=== PATIENT | female | born 1940 | race Caucasian/White ===

== ENCOUNTER → 2016-09-17 | Outpatient (CLI) | payer MEDICARE, OTHER ==
[~2016-09-17] MED LIST: /HCTZ25TA PO; /OCUVTA PO; ADV250INH INH; ALB2.5NEB INH; AZELASTINE HCL; CENTTAB PO; DOCU100C PO; GINKO BILOBA PO; LANS30CA PO; LEVO750T PO; MUCI600T34 PO; PRED10PA PO; PROAAER INH; RAMI10CA PO; SPIRIVA INH
[2016-09-17 11:54] LABS: BASO % 0.8 % (0.0-1.0); EOS # 0.2 K/mm3 (0.0-0.50); EOS % 2.5 % (0.0-3.0); LARGE UNSTAINED CELL # 0.1 K/mm3 (0.0-0.4); LARGE UNSTAINED CELL % 1.5 % (0.0-4.0); LYMPH # 1.4 K/mm3 (1.5-4.5); LYMPH % 18.8 % (24.0-44.0); MEAN CORPUSCULAR HEMOGLOBIN 32.1 pg (27.0-33.0); MEAN CORPUSCULAR HGB CONC 33.7 g/dl (32.0-36.5); MEAN CORPUSCULAR VOLUME 95.3 fl (80.0-96.0); MONO # 0.4 K/mm3 (0.0-0.8); MONO % 6.3 % (0.0-5.0); NEUTROPHILS # 4.7 K/mm3 (1.8-7.7); NEUTROPHILS % 70.1 % (36.0-66.0); PLATELET COUNT, AUTOMATED 237 k/mm3 (150-450); RED CELL DISTRIBUTION WIDTH 13.3 % (11.5-14.5); WHITE BLOOD COUNT 6.7 K/mm3 (4.0-10.0)
[2016-09-17 12:24] LABS: ALBUMIN 3.8 GM/DL (3.2-5.2); ALBUMIN/GLOBULIN RATIO 1.27 (1.00-1.93); ALKALINE PHOSPHATASE 69 U/L (45-117); ALT/SGPT 21 U/L (12-78); ANION GAP 5 MEQ/L (8-16); AST/SGOT 20 U/L (15-37); BILIRUBIN,TOTAL 0.6 MG/DL (0.2-1.0); BLOOD UREA NITROGEN 17 MG/DL (7-18); CALCIUM LEVEL 9.2 MG/DL (8.8-10.2); CARBON DIOXIDE LEVEL 35 MEQ/L (21-32); CHLORIDE LEVEL 98 MEQ/L (98-107); CHOLESTEROL LEVEL 242 MG/DL (<200); GLOMERULAR FILTRATION RATE > 60.0 (>39); GLUCOSE, FASTING 82 MG/DL (83-110); POTASSIUM SERUM 4.2 MEQ/L (3.5-5.1); SODIUM LEVEL 138 MEQ/L (136-145); TOTAL PROTEIN 6.8 GM/DL (6.4-8.2); TRIGLYCERIDES LEVEL 40 MG/DL (<150)
== END ==
LOC: M LAB 11:02
PROVIDERS: ATTEND Family Medicine
DX: I10 Essential (primary) hypertension (principal)

== ENCOUNTER → 2016-10-13 | Outpatient (CLI) | payer MEDICARE ==
[2016-10-15 00:06] LABS: Lyme Disease IgG/IgM Antibodie <0.91 ISR (0.00-0.90); Lyme Disease IgM Ab Quantitati <0.80 index (0.00-0.79)
== END ==
LOC: M SMT 09:33
PROVIDERS: ATTEND Family Medicine
DX: R21 Rash and other nonspecific skin eruption (principal)

== ENCOUNTER 2016-12-20 10:25 | Emergency (ER) | payer MEDICARE, OTHER ==
[~2016-12-20] VITALS: Ht 170.2 cm; Wt 72.7 kg
[2016-12-20] MEDS ORDERED: ASPI81TA85 PO (10:53)
--- NOTE | 2016-12-20 11:37 | REP ---
Clinical: Trauma. Technique: Zelaya and bilateral lateral views of the nasal bones. Findings: Lateral view best demonstrates overlying soft tissue swelling. No definite acute fracture or displacement. Nasal septum is midline. Impression: No definite acute fracture or displacement. Signed by Bridger Motley MD 12/20/2016 11:29 A
[2016-12-20] MEDS ORDERED: LIDOCAINE 1% MDV 20ML VIAL SC ONE (12:15)
[2016-12-20] MEDS ORDERED: LIDOCAINE 1% SDV INJ 30 ML VIAL SC SCH (12:15)
[2016-12-20] MEDS ORDERED: KEFL500C17 PO (12:44)
[2016-12-20 12:52] VITALS: BP 159/82
== END 2016-12-20 13:02 | disposition home or self-care (01) ==
LOC: M ED 10:25
DX: S01.21XA Laceration without foreign body of nose, initial encounter (principal); W01.198A Fall on same level from slipping, tripping and stumbling with subsequent striking against other object, initial encounter; Y92.099 Unspecified place in other non-institutional residence as the place of occurrence of the external cause; Y93.01 Activity, walking, marching and hiking; Y99.9 Unspecified external cause status

== ENCOUNTER 2017-01-25 09:36 | Inpatient (IN) | payer MEDICARE, OTHER ==
[~2017-01-25] VITALS: Ht 170.2 cm; Wt 67.5 kg
[~2017-01-25 09:36] MED LIST changes: +ASPI81TA85 PO; +KEFL500C17 PO
[2017-01-25 10:17] LABS: BASO # 0.1 10^3/uL (0.0-0.2); BASO % 0.6 % (0.0-1.0); EOS # 0.1 10^3/uL (0.0-0.50); EOS % 1.3 % (0.0-3.0); IMMATURE GRANULOCYTE % 0.2 % (0-0); LYMPH # 1.4 10^3/uL (1.5-4.5); MEAN CORPUSCULAR HEMOGLOBIN 31.3 pg (27.0-33.0); MEAN CORPUSCULAR HGB CONC 34.8 g/dl (32.0-36.5); MEAN CORPUSCULAR VOLUME 90.1 fl (80.0-96.0); MONO # 0.9 10^3/uL (0.0-0.8); MONO % 9.4 % (0.0-5.0); NEUTROPHILS # 7.4 10^3/uL (1.8-7.7); NEUTROPHILS % 74.5 % (36.0-66.0); PLATELET COUNT, AUTOMATED 281 10^3/uL (150-450); RED CELL DISTRIBUTION WIDTH 12.3 % (11.5-14.5); WHITE BLOOD COUNT 9.9 10^3/uL (4.0-10.0)
--- NOTE | 2017-01-25 10:22 | REP ---
Chest two views HISTORY: Shortness of breath Comparison: 08/13/2012 The lungs are clear. The heart is normal in size. The pulmonary vasculature is normal in appearance. The bony structure is intact. IMPRESSION: No acute disease. Signed by Tyrone Cedeno MD 01/25/2017 10:14 A
[2017-01-25 10:28] LABS: ADD MANUAL DIFFER NO; DIFF SLIDE NUMBER 162
[2017-01-25 10:43] LABS: INR 0.94
[2017-01-25 10:58] LABS: ALBUMIN 3.8 GM/DL (3.2-5.2); ALBUMIN/GLOBULIN RATIO 1.19 (1.00-1.93); ALKALINE PHOSPHATASE 64 U/L (45-117); ALT/SGPT 25 U/L (12-78); ANION GAP 8 MEQ/L (8-16); AST/SGOT 15 U/L (15-37); BILIRUBIN,DIRECT 0.2 MG/DL (0.0-0.2); BILIRUBIN,TOTAL 0.9 MG/DL (0.2-1.0); BLOOD UREA NITROGEN 13 MG/DL (7-18); CALCIUM LEVEL 9.4 MG/DL (8.8-10.2); CARBON DIOXIDE LEVEL 30 MEQ/L (21-32); CHLORIDE LEVEL 93 MEQ/L (98-107); CREATININE FOR GFR 0.73 MG/DL (0.55-1.02); FREE T4 1.22 NG/DL (0.76-1.46); GLOMERULAR FILTRATION RATE > 60.0 (>39); GLUCOSE, FASTING 106 MG/DL (83-110); POTASSIUM SERUM 3.3 MEQ/L (3.5-5.1); SODIUM LEVEL 131 MEQ/L (136-145)
[2017-01-25] MEDS ORDERED: MECLIZINE 25 MG TABLET PO ONE (11:00)
[2017-01-25] MEDS ORDERED: NS 1,000 ML IV ONE (11:00)
--- NOTE | 2017-01-25 11:14 | REP ---
CT Head without contrast HISTORY: Infarction COMPARISON: None Areas of decreased attenuation are present in the periventricular and subcortical white matter. This represents small-vessel ischemic disease. There is no intraparenchymal hemorrhage, acute infarct, mass or midline shift. The ventricular system and cortical sulci are dilated consistent with minimal volume loss. There is no extra cerebral collection. There is no fracture. The visualized sinuses are clear. IMPRESSION: 1. Small vessel ischemic disease. 2. Minimal volume loss. Signed by Tyrone Cedeno MD 01/25/2017 11:06 A
[2017-01-25] MEDS ORDERED: POTASSIUM CHLORIDE 10 MEQ SR TABLET PO ONE (11:15)
[2017-01-25 11:21] LABS: PHOSPHORUS LEVEL 2.8 MG/DL (2.5-4.9)
[2017-01-25 13:57] VITALS: O2SAT 96
--- NOTE | 2017-01-25 16:12 | ECGEPIP ---
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 RBBB BASELINE ARTIFACT AFFECTS INTERPRETATION SIMILAR TO 08/13/12 Electronically Signed On 01-25-2017 16:12:41 EDT by Nixon Elias
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
[2017-01-25] MEDS ORDERED: VITMTA PO (17:10)
[2017-01-25] MEDS ORDERED: SPIR1CAP INH (17:10)
[2017-01-25] MEDS ORDERED: TUMS500C PO (17:10)
[2017-01-25] MEDS ORDERED: GINK60CA3 PO (17:10)
[2017-01-25] MEDS ORDERED: CALCIUM CARBONATE 500 MG CHEW U/D PO PRN (18:00)
[2017-01-25] MEDS ORDERED: ALBUTEROL 90 MCG/ACT 8GM HFA INHALER INH PRN (18:00)
[2017-01-25 18:57] LABS: VITAMIN B12 LEVEL 1370 PG/ML (247-911)
--- NOTE | 2017-01-25 20:00 | REPUSA ---
MRI of the brain. Clinical history: Bilateral lower extremity weakness. Technique: Multiecho multiplanar MRI images of the brain were obtained without administration of cont rast. Diffusion weighted images with ADC mapping was also obtained. Findings: The ventricles and sulci are symmetric bilaterally. The brain parenchyma demonstrates extensive areas of T2 hyperintensitythroughout the subcortical and periventricular white matter bilaterally. There i s no midline shift, mass effect, or extra-axial fluid collection. The midline intracranial structures do not demonstrate any gross abnormalities. The cervical cranial junction is intact. The orbits are unremarkable. The visualized paranasal sinuses and mastoid air cells are clear. The osseous structure s and superficial soft tissues are unremarkable. The vascular structures demonstrate appropriate flow voids. Impression: No evidence of acute infarct or hemorrhage. Diffuse moderately severe chronic small vesse l ischemic disease.
[2017-01-25 20:35] VITALS: BP 152/72
--- NOTE | 2017-01-25 20:40 | REPUSA ---
MRI cervical spine without contrast Clinical statement: bilateral weakness. Technique: Multiecho multiplanar MRI images of the cervical spine were obtained without administratio n of contrast. No comparison is available. Findings: The cervical vertebral bodies are in satisfactory position and alignment. No fractures or d islocations are demonstrated. Normal heterogeneous bone marrow signal is noted. No osseous tumors are seen. The visualized portions of the posterior fossa are unremarkable. The cervical cranial junction is intact. The intervertebral disc spaces and heights are well-maintained. The facet joints are inta ct without evidence of subluxation. The cervical spinal cord demonstrates normal signal and contour. The surrounding soft tissues are within normal limits. At the C3/C4, C4/C5, C5/C6, and C6/C7 disc levels, there are broad disc osteophyte complexes and disc bulges. There are no disc herniations. There is no evidence of central canal stenosis. The neural f oramina are patent bilaterally. Impression: No acute abnormality. Moderate disc osteophyte complexes and disc bulges at C3/C4, C4/C5 , C5/C6, and C6/C7, without evidence of central canal stenosis or neural foraminal narrowing.
[2017-01-25] MEDS: ENOXAPARIN 40 MG/0.4 ML SYRINGE (J1650) SC SCH (20:57)
--- NOTE | 2017-01-25 21:38 | CR ---
DATE OF CONSULTATION: 01/25/2017 REFERRING PHYSICIAN: Dr. Tomy Luna REASON FOR CONSULTATION: Generalized weakness of the arms and legs. HISTORY OF PRESENT ILLNESS: Gifty Anderson is a 76-year-old female presenting with nonspecific complaint of generalized weakness ongoing for the last 1-2 months. The patient states that she had a rash on her right upper back described as a red [place]. She did not have any other associated complaints with this rash. Her primary care provider preemptively started her on doxycycline which she completed during the month of October. The patient did not have any symptoms of weakness or arthralgias and paresthesias of that time. Presently, she denies any ascending paresthesias. She feels that generally her arms and legs are weaker. She denies any recent illness. She denies any blurred vision, fatigue with chewing, dysarthria, dysphagia, vertigo. She denies any change in sensation throughout her arms, legs or trunk. She denies any change in bowel or bladder habits. The patient is not falling down. She feels her gait is unsteady. ALLERGIES: None. MEDICATIONS: - Pravachol 10 mg by mouth daily - albuterol 1 puff inhaled every 4 hours as needed shortness of breath - aspirin 81 mg by mouth every day - hydrochlorothiazide 25 mg by mouth every day - Salmeterol/fluticasone 255/50 1 puff inhaled twice a day - Spiriva 2 puffs inhaled daily PAST MEDICAL HISTORY: Hypertension. Chronic obstructive pulmonary disease (COPD). Hiatal hernia. Gastroesophageal reflux disease. PAST SURGICAL HISTORY: section. Right knee replacement. Hysterectomy. Cataract surgery. Bilateral inguinal hernia repairs. SOCIAL HISTORY: The patient quit tobacco greater than a year ago. The patient used to smoke one-pack per day. The patient denies any use of drugs. The patient does state that she drinks alcohol, a glass of wine almost nightly. States last time she drank alcohol was probably last . REVIEW OF SYSTEMS: 14 point review of systems negative except for as per HPI. FAMILY HISTORY: Noncontributory. PHYSICAL EXAMINATION: Blood pressure 106/83, pulse rate 74, respiratory rate is 16, oxygenation 99% on room air. Current height 5 foot 7 inches. Current weight is 68 pounds. Pupils are 3 mm, round, and reactive to light. Both are postsurgical. Sensation: V1, V2, V3 is intact to light touch. No facial asymmetry to activation. Palate elevates symmetrically. Tongue is midline. No weakness of sternocleidomastoids bilaterally. There is no pronator drift. Strength is 5/5 including bilateral deltoids, biceps, triceps, hand site worker, finger extensors, finger flexors, iliopsoas, quadriceps, anterior tibialis. Deep tendon reflexes are 3s in the upper extremities, 3s of the patellas, 1+ at the Achilles. Babinski signs are absent. Sensory is intact to light touch in all four extremities. Coordination demonstrates mild past pointing [id number]. Gait deferred. ASSESSMENT: Generalized malaise and fatigue. The patient is found to have orthostatic hypotension. Lyme antibodies are pending. There does not appear to be clinical symptoms suggestive of Guillain-Rosedale syndrome. Rule out cervical myelopathy given subjective arm and leg weakness. PLAN: Obtain an MRI cervical spine without contrast, MRI brain without contrast, physical therapy (PT)/occupational therapy (OT). Recommend physical therapy evaluation for strength training for generalized deconditioning. Would recommend checking B12 level. Followup Lyme antibody.
[2017-01-25 22:00] VITALS: BP 149/67
[2017-01-26 06:00] VITALS: BP 126/82
[2017-01-26 07:07] LABS: BASO # 0.1 10^3/uL (0.0-0.2); BASO % 0.9 % (0.0-1.0); EOS # 0.2 10^3/uL (0.0-0.50); EOS % 2.4 % (0.0-3.0); IMMATURE GRANULOCYTE % 0.3 % (0-0); LYMPH # 1.7 10^3/uL (1.5-4.5); LYMPH % 21.9 % (24.0-44.0); MEAN CORPUSCULAR VOLUME 91.4 fl (80.0-96.0); MONO # 0.8 10^3/uL (0.0-0.8); MONO % 10.1 % (0.0-5.0); NEUTROPHILS # 5.1 10^3/uL (1.8-7.7); NEUTROPHILS % 64.4 % (36.0-66.0); PLATELET COUNT, AUTOMATED 240 10^3/uL (150-450); RED CELL DISTRIBUTION WIDTH 12.5 % (11.5-14.5); WHITE BLOOD COUNT 7.9 10^3/uL (4.0-10.0)
[2017-01-26 07:26] LABS: ALBUMIN 3.4 GM/DL (3.2-5.2); ALKALINE PHOSPHATASE 60 U/L (45-117); ALT/SGPT 24 U/L (12-78); ANION GAP 6 MEQ/L (8-16); AST/SGOT 16 U/L (15-37); BILIRUBIN,TOTAL 0.7 MG/DL (0.2-1.0); BLOOD UREA NITROGEN 12 MG/DL (7-18); CALCIUM LEVEL 9.2 MG/DL (8.8-10.2); CARBON DIOXIDE LEVEL 30 MEQ/L (21-32); CHLORIDE LEVEL 99 MEQ/L (98-107); CREATININE FOR GFR 0.66 MG/DL (0.55-1.02); GLOMERULAR FILTRATION RATE > 60.0 (>39); GLUCOSE, FASTING 94 MG/DL (83-110); POTASSIUM SERUM 4.1 MEQ/L (3.5-5.1); SODIUM LEVEL 135 MEQ/L (136-145); TOTAL PROTEIN 6.5 GM/DL (6.4-8.2)
[2017-01-26] MEDS: TIOTROPIUM INHALER/CAPSULE (SPIRIVA) INH SCH (07:53)
[2017-01-26] MEDS: ENOXAPARIN 40 MG/0.4 ML SYRINGE (J1650) SC SCH (08:14)
[2017-01-26] MEDS: hydroCHLOROthiazide 25 MG TAB PO SCH (08:14)
[2017-01-26] MEDS: MULTIVITAMINS/MINERALS THERAP 1 TAB PO SCH (08:14)
[2017-01-26] MEDS: ASPIRIN 81 MG ENTERIC TAB PO SCH (08:14)
[2017-01-26 09:00] VITALS: BP 116/55
[2017-01-26] MEDS: ADVAIR HFA 230/21MCG INHALER INH SCH ×2 (09:00→19:44)
[2017-01-26] MEDS: SENOKOT S TAB PO SCH ×2 (09:43→20:22)
[2017-01-26] MEDS: LISINOPRIL 10 MG TAB PO SCH (12:38)
[2017-01-26 14:00] VITALS: BP 117/69
--- NOTE | 2017-01-26 17:53 | IPNPDOC ---
Date Seen The patient was seen on 01/26/17. Progress Note Hospitalist Progress Note Subjective: Patient has no specific complaints. She states that her weakness is better today, but she notes that it often is better when she rests, and really seems to come on when she is active which makes her short of breath. Objective: Physical Exam: Vitals: Vital Sign - Last 24 Hours 01/25/17 01/25/17 01/25/17 01/25/17 18:15 20:35 21:00 22:00 Temp 97.3 97.0 Pulse 76 78 Resp 22 19 B/P (MAP) 152/72 (98) 149/67 (94) 140/88 (105) Pulse Ox 97 98 O2 Delivery Room Air Room Air Room Air 01/26/17 01/26/17 01/26/17 01/26/17 06:00 08:00 09:00 09:00 Temp 97.5 98.4 Pulse 76 84 Resp 18 18 B/P (MAP) 126/82 (97) 116/55 (75) Pulse Ox 96 97 O2 Delivery Room Air Room Air Room Air Room Air 01/26/17 01/26/17 12:38 14:00 Temp 99.9 Pulse 80 Resp 18 B/P (MAP) 151/77 117/69 (85) Pulse Ox 96 O2 Delivery Room Air General: Awake, alert, no acute distress HEENT: Normocephalic, atraumatic, extraocular movements intact CV: Regular rate and rhythm Lungs: Clear to auscultation bilaterally Abd: Soft, Nontender, nondistended Extremities: No edema Neuro: No focal weakness, alert and oriented 3, normal speech Psych: Normal mood and affect Labs and Imaging: Laboratory Tests 01/26/17 06:23 Red Blood Count 4.67, Mean Corpuscular Volume 91.4, Mean Corpuscular Hemoglobin 31.0, Mean Corpuscular Hemoglobin Concent 34.0, Red Cell Distribution Width 12.5 , Neutrophils (%) (Auto) 64.4, Lymphocytes (%) (Auto) 21.9 L, Monocytes (%) ( Auto) 10.1 H, Eosinophils (%) (Auto) 2.4, Basophils (%) (Auto) 0.9, Neutrophils # (Auto) 5.1, Lymphocytes # (Auto) 1.7, Monocytes # (Auto) 0.8, Eosinophils # ( Auto) 0.2, Basophils # (Auto) 0.1, Calcium Level 9.2, Aspartate Amino Transf ( AST/SGOT) 16, Alanine Aminotransferase (ALT/SGPT) 24, Alkaline Phosphatase 60, Total Bilirubin 0.7, Total Protein 6.5, Albumin 3.4 Assessment and Plan: 76-year-old female with hypertension, COPD, GERD, hiatal hernia who presented to the emergency department with ascending weakness 1 week and orthostatic hypotension. 1. Ascending weakness: The patient was evaluated by Dr. Durham of neurology and he does not feel that this represents Guillain-Rossi. He does recommend ruling out cervical myelopathy with MRI of the C-spine, as well as MRI of the brain, both of which were unremarkable for acute findings and had no evidence of central canal stenosis. We will continue with PT and OT. Lyme antibody is pending, which we will follow up. It appears that this is likely generalized weakness. However, given her report that this seems to come on when she is active which makes her short of breath, we will check an echocardiogram. She does not clinically appear to be having any CHF. 2. Orthostatic hypotension in the setting of chronic hypertension: This was noted once in the emergency department, and her blood pressure has otherwise been a little bit elevated. We will continue her on her home SHERIE inhibitor and HCTZ, and continue to check orthostatics. If they continue to be positive, we will stop the HCTZ. 3. COPD: Continue home Spiriva and home Advair, as well as as needed albuterol. Currently stable. DVT prophylaxis: Lovenox Dispo: pending Lyme antibody as well as echocardiogram results, and clearance by PT/OT VS, I&O, 24H, Fishbone Vital Signs/I&O Vital Signs Date Time Temp Pulse Resp B/P (MAP) Pulse Ox O2 Delivery O2 Flow Rate FiO2 01/26/17 14:00 99.9 80 18 117/69 (85) 96 Room Air I&O- Last 24 Hours up to 6 AM 01/27/17 06:00 Intake Total 720 ml Output Total 300 ml Balance 420 ml Laboratory Data 24H LABS Laboratory Tests 2 01/25/17 18:01: Erythrocyte Sedimentation Rate 3, C-Reactive Protein, Quantitative < 0.30, Vitamin B12 Level 1370H 01/26/17 06:23: Immature Granulocyte % (Auto) 0.3H, White Blood Count 7.9, Red Blood Count 4.67 , Hemoglobin 14.5, Hematocrit 42.7, Mean Corpuscular Volume 91.4, Mean Corpuscular Hemoglobin 31.0, Mean Corpuscular Hemoglobin Concent 34.0, Red Cell Distribution Width 12.5, Platelet Count 240, Neutrophils (%) (Auto) 64.4, Lymphocytes (%) (Auto) 21.9L, Monocytes (%) (Auto) 10.1H, Eosinophils (%) (Auto ) 2.4, Basophils (%) (Auto) 0.9, Neutrophils # (Auto) 5.1, Lymphocytes # (Auto) 1.7, Monocytes # (Auto) 0.8, Eosinophils # (Auto) 0.2, Basophils # (Auto) 0.1, Immature Granulocyte # (Auto) 0.0, Nucleated Red Blood Cells % (auto) 0.0, Anion Gap 6L, Glomerular Filtration Rate > 60.0, Blood Urea Nitrogen 12, Creatinine 0.66, Sodium Level 135L, Potassium Level 4.1#, Chloride Level 99, Carbon Dioxide Level 30, Calcium Level 9.2, Aspartate Amino Transf (AST/SGOT) 16 , Alanine Aminotransferase (ALT/SGPT) 24, Alkaline Phosphatase 60, Total Bilirubin 0.7, Total Protein 6.5, Albumin 3.4, Albumin/Globulin Ratio 1.10 01/26/17 06:24: CBC/BMP Laboratory Tests 01/26/17 06:23 Red Blood Count 4.67, Mean Corpuscular Volume 91.4, Mean Corpuscular Hemoglobin 31.0, Mean Corpuscular Hemoglobin Concent 34.0, Red Cell Distribution Width 12.5 , Neutrophils (%) (Auto) 64.4, Lymphocytes (%) (Auto) 21.9 L, Monocytes (%) ( Auto) 10.1 H, Eosinophils (%) (Auto) 2.4, Basophils (%) (Auto) 0.9, Neutrophils # (Auto) 5.1, Lymphocytes # (Auto) 1.7, Monocytes # (Auto) 0.8, Eosinophils # ( Auto) 0.2, Basophils # (Auto) 0.1, Calcium Level 9.2, Aspartate Amino Transf ( AST/SGOT) 16, Alanine Aminotransferase (ALT/SGPT) 24, Alkaline Phosphatase 60, Total Bilirubin 0.7, Total Protein 6.5, Albumin 3.4 CARO OCAMPO Jan 26, 2017 17:53
[2017-01-26] MEDS ORDERED: ACETAMINOPHEN 325 MG TAB PO ONE (19:30)
[2017-01-26 21:23] VITALS: BP 123/63
[2017-01-27 00:20] LABS: Lyme Disease IgG/IgM Antibodie <0.91 ISR (0.00-0.90); Lyme Disease IgM Ab Quantitati <0.80 index (0.00-0.79)
[2017-01-27 05:42] VITALS: BP 142/82
[2017-01-27 07:58] LABS: BASO # 0.1 10^3/uL (0.0-0.2); BASO % 0.7 % (0.0-1.0); EOS # 0.3 10^3/uL (0.0-0.50); EOS % 3.7 % (0.0-3.0); IMMATURE GRANULOCYTE % 0.3 % (0-0); LYMPH # 1.8 10^3/uL (1.5-4.5); LYMPH % 25.2 % (24.0-44.0); MEAN CORPUSCULAR HEMOGLOBIN 31.1 pg (27.0-33.0); MEAN CORPUSCULAR HGB CONC 34.2 g/dl (32.0-36.5); MEAN CORPUSCULAR VOLUME 90.9 fl (80.0-96.0); MONO # 0.7 10^3/uL (0.0-0.8); MONO % 9.1 % (0.0-5.0); NEUTROPHILS # 4.5 10^3/uL (1.8-7.7); PLATELET COUNT, AUTOMATED 266 10^3/uL (150-450); RED CELL DISTRIBUTION WIDTH 12.2 % (11.5-14.5); WHITE BLOOD COUNT 7.3 10^3/uL (4.0-10.0)
[2017-01-27] MEDS: ADVAIR HFA 230/21MCG INHALER INH SCH (08:01)
[2017-01-27 08:10] VITALS: BP 117/59
[2017-01-27 08:10] LABS: ADD MANUAL DIFFER NO; DIFF SLIDE NUMBER 73
[2017-01-27 08:11] VITALS: BP_SYST 104; BP_SYST 105; BP_DIAS 59; BP_DIAS 60
[2017-01-27] MEDS: TIOTROPIUM INHALER/CAPSULE (SPIRIVA) INH SCH (08:11)
[2017-01-27 08:14] LABS: ANION GAP 8 MEQ/L (8-16); BLOOD UREA NITROGEN 12 MG/DL (7-18); CALCIUM LEVEL 9.3 MG/DL (8.8-10.2); CARBON DIOXIDE LEVEL 30 MEQ/L (21-32); CHLORIDE LEVEL 96 MEQ/L (98-107); GLOMERULAR FILTRATION RATE > 60.0 (>39); GLUCOSE, FASTING 104 MG/DL (83-110); MAGNESIUM LEVEL 2.1 MG/DL (1.8-2.4); POTASSIUM SERUM 3.1 MEQ/L (3.5-5.1); SODIUM LEVEL 134 MEQ/L (136-145)
[2017-01-27] MEDS: ENOXAPARIN 40 MG/0.4 ML SYRINGE (J1650) SC SCH (09:17)
[2017-01-27] MEDS: POTASSIUM CHLORIDE 10 MEQ SR TABLET PO SCH ×2 (09:17→13:13)
[2017-01-27] MEDS: ASPIRIN 81 MG ENTERIC TAB PO SCH (09:18)
[2017-01-27] MEDS: SENOKOT S TAB PO SCH (09:18)
[2017-01-27] MEDS: MULTIVITAMINS/MINERALS THERAP 1 TAB PO SCH (09:18)
[2017-01-27] MEDS: hydroCHLOROthiazide 25 MG TAB PO SCH (09:18)
[2017-01-27 10:33] VITALS: BP 159/92
[2017-01-27] MEDS: LISINOPRIL 10 MG TAB PO SCH (10:33)
[2017-01-27 14:00] VITALS: BP 120/56
[2017-01-27] MEDS ORDERED: ACETAMINOPHEN TAB 650MG DOSE (2X325MG) PO PRN (17:30)
--- NOTE | 2017-01-27 18:21 | DS.PDOC ---
Discharge Summary General Date of Admission Jan 25, 2017 at 17:10 Date of Discharge 01/27/2017 Discharge Summary DISCHARGE SUMMARY DATE OF ADMISSION: 01/25/2017 DATE OF DISCHARGE: 01/27/2017 PRIMARY CARE PHYSICIAN: Dr. Janie Krishnamurthy DISCHARGE DIAGNOS(E)S: Generalized deconditioning HPI & HOSPITAL COURSE: 76-year-old female with hypertension, COPD, GERD, hiatal hernia who presented to the emergency department with ascending weakness 1 week and orthostatic hypotension. 1. Ascending weakness: The patient was evaluated by Dr. Durham of neurology and he does not feel that this represents Guillain-Rossi. He does recommend ruling out cervical myelopathy with MRI of the C-spine, as well as MRI of the brain, both of which were unremarkable for acute findings and had no evidence of central canal stenosis. Lyme antibody is negative. Aldolase and acetylcholine receptor Ab are pending and will need to be followed up by PCP. It appears that this is likely generalized weakness. However, given her report that this seems to come on when she is active which makes her short of breath, we checked an echocardiogram, which had no evidence of sCHF or aortic stenosis. Echocardiogram was remarkable only for some mild diastolic dysfunction, mild aortic regurg, mild tricuspid regurg, and mild pulmonary hypertension. She is not clinically volume overloaded. She will need to continue to follow up outpatient with Dr. Durham. She has been cleared by PT/OT. On the day of discharge, the patient's family had a lot of questions regarding her exact diagnosis and further plans. I had an extensive conversation with the patient's and daughter in the presence of the patient. I explained that we have been able to rule out life-threatening issues, as well as any other issues that would necessitate remaining in the hospital. I did encourage them to continue to keep outpatient follow-up appointments with neurology, as they still have significant concerns given the patient's weakness. I spoke to Dr. Durham on the phone given the family's concerns. He was willing to speak with them in person again after his clinic today, but the family stated that they were not able to wait for him to finish up clinic. Given that the patient and family did not want to wait for him to finish up clinic, he called the patient's room on the phone and spoke to them on the phone regarding their concerns. He also encouraged outpatient neurology follow-up for potential EMG testing. 2. Orthostatic hypotension in the setting of chronic hypertension: This was noted once in the emergency department, and her blood pressure has otherwise been a little bit elevated. We continued her on her home SHERIE inhibitor and HCTZ , and continued to check orthostatics, which were normal. She will need to follow up with her PCP. 3. COPD: Continue home Spiriva and home Advair, as well as as needed albuterol. Currently stable. DVT prophylaxis: Lovenox PHYSICAL EXAMINATION ON DISCHARGE: VITAL SIGNS: Vital Signs Date Time Temp Pulse Resp B/P (MAP) Pulse Ox O2 Delivery O2 Flow Rate FiO2 01/27/17 14:00 99.3 84 18 120/56 (77) 97 Room Air General: Awake, alert, no acute distress HEENT: Normocephalic, atraumatic, extraocular movements intact CV: Regular rate and rhythm Lungs: Clear to auscultation bilaterally Abd: Soft, Nontender, nondistended Extremities: No edema Neuro: No focal weakness, alert and oriented 3, normal speech, intact finger to nose Psych: Normal mood and affect DISPOSITION: Home DISCHARGE INSTRUCTIONS: Follow-up with PCP within one week. Follow-up with Dr. Durham in 1-2 weeks. If symptoms return, or if you experience worsening of your symptoms, please call your doctor or return to the emergency department. ITEMS THAT NEED OUTPATIENT FOLLOWUP: Aldolase and acetylcholine receptor Ab are pending and will need to be follow up by PCP Patient was seen and examined by me on the day of discharge, and I spent a total time of greater than 30 minutes on this discharge. Vital Signs/I&Os Vital Signs Date Time Temp Pulse Resp B/P (MAP) Pulse Ox O2 Delivery O2 Flow Rate FiO2 01/27/17 14:00 99.3 84 18 120/56 (77) 97 Room Air I&O- Last 24 Hours up to 6 AM 01/28/17 06:00 Intake Total 1140 ml Output Total 450 ml Balance 690 ml Laboratory Data Labs 24H Laboratory Tests 2 01/27/17 07:37: Immature Granulocyte % (Auto) 0.3H, White Blood Count 7.3, Red Blood Count 4.70 , Hemoglobin 14.6, Hematocrit 42.7, Mean Corpuscular Volume 90.9, Mean Corpuscular Hemoglobin 31.1, Mean Corpuscular Hemoglobin Concent 34.2, Red Cell Distribution Width 12.2, Platelet Count 266, Neutrophils (%) (Auto) 61.0, Lymphocytes (%) (Auto) 25.2, Monocytes (%) (Auto) 9.1H, Eosinophils (%) (Auto) 3.7H, Basophils (%) (Auto) 0.7, Neutrophils # (Auto) 4.5, Lymphocytes # (Auto) 1.8, Monocytes # (Auto) 0.7, Eosinophils # (Auto) 0.3, Basophils # (Auto) 0.1, Immature Granulocyte # (Auto) 0.0, Nucleated Red Blood Cells % (auto) 0.0, Anion Gap 8, Glomerular Filtration Rate > 60.0, Blood Urea Nitrogen 12, Creatinine 0.70, Sodium Level 134L, Potassium Level 3.1#L, Chloride Level 96L, Carbon Dioxide Level 30, Calcium Level 9.3, Magnesium Level 2.1 CBC/BMP Laboratory Tests 01/27/17 07:37 Red Blood Count 4.70, Mean Corpuscular Volume 90.9, Mean Corpuscular Hemoglobin 31.1, Mean Corpuscular Hemoglobin Concent 34.2, Red Cell Distribution Width 12.2 , Neutrophils (%) (Auto) 61.0, Lymphocytes (%) (Auto) 25.2, Monocytes (%) (Auto ) 9.1 H, Eosinophils (%) (Auto) 3.7 H, Basophils (%) (Auto) 0.7, Neutrophils # ( Auto) 4.5, Lymphocytes # (Auto) 1.8, Monocytes # (Auto) 0.7, Eosinophils # (Auto ) 0.3, Basophils # (Auto) 0.1, Calcium Level 9.3 Discharge Medications Scheduled (Ramipril) 10 Mg Cap, 10 MG PO DAILY, (Reported) Aspirin (Aspir-81) 81 Mg Tab, 81 MG PO DAILY, (Reported) Ginkgo Biloba Extract (Ginkgo Biloba) Unknown Strength Cap, Unknown Dose PO QHS, (Reported) Hydrochlorothiazide (Hctz) 25 Mg Tab, 25 MG PO DAILY, (Reported) Multivitamins *[facility] STOCKED* (Thera M Plus *[facility] STOCKED*) 1 Tab Tab, 1 TAB PO DAILY, (Reported) Salmeterol/Fluticasone (Advair Diskus 250/50) 14 Puff/Inhaler Aerp, 1 PUFF INH BID, (Reported) Tiotropium [place] Monohydrate (Spiriva Handihaler) 18 Mcg Cap, 1 INHALATION INH DAILY, (Reported) Scheduled PRN Albuterol Sulfate (Proair Hfa) Aer, 2 PUFFS INH Q4H PRN for SHORTNESS OF BREATH , (Reported) Calcium Carbonate (Tums) 500 Mg Chw, 500 MG PO for HEARTBURN, (Reported) Allergies Coded Allergies: No Known Allergies (Unverified , 08/13/12) CARO OCAMPO Jan 27, 2017 18:21
--- NOTE | 2017-01-27 20:40 | ECHO ---
DATE OF PROCEDURE: 01/27/2017 REFERRING PHYSICIAN: Sushma Franks MD PATIENT LOCATION: Room 4131 REASON FOR ECHOCARDIOGRAM: Shortness of breath. 2D MEASUREMENTS: IVS: 1.3 cm LV: 3.7 cm LVPW: 1.3 cm LA: 3.3 cm Aorta: 3.2 cm IVC: 1.6 DOPPLER MEASUREMENTS: Peak velocity across the aortic valve: 1.5 m/s Peak velocity across the LVOT: 0.86 m/s Mitral E: 0.46, Mitral A: 0.75, with a ratio of 0.6 Maximum tricuspid valve velocity: 2.3 m/s 2D COMMENTS: 1. Mildly increased left ventricular wall thickness with normal left ventricular size and a normal global left ventricular systolic function. The estimated left ventricular systolic ejection fraction is 60 to 65%. 2. Normal left atrium. Normal right atrium and right ventricle. 3. The atrial septum appeared to be normal without evidence of defect or shunt. 4. Normal aortic root. 5. No pericardial effusion seen. 6. Mildly calcified aortic valve with normal leaflet excursion. Minimally calcified mitral annulus with normal anterior mitral valve leaflet motion. Normal tricuspid valve and pulmonic valve. The proximal pulmonary artery branches were not well visualized. 7. The inferior vena cava was normal in size, central venous pressure is most likely normal. DOPPLER: It detects mild aortic regurgitation and mild tricuspid regurgitation. The calculated pulmonary artery systolic pressure varied between 30 to 40 mmHg. Abnormal relaxation pattern was noted across the mitral valve leaflets as well as the mitral valve annulus consistent with grade 1 left ventricular diastolic dysfunction. IMPRESSION: 1. Normal global left ventricular systolic function with mild concentric left ventricular hypertrophy. There are features of left ventricular diastolic dysfunction manifested by abnormal relaxation. 2. Aortic valve sclerosis with mild aortic regurgitation. 3. Mitral annulus calcification, no significant mitral regurgitation detected. 4. Mild tricuspid regurgitation with mild pulmonary hypertension. MTDD
[2017-02-04 08:19] LABS: ACETYLCHOLINE RCPTOR BINDING A < 0.03 nmol/L (0.00-0.24)
== END 2017-01-27 18:20 | disposition home or self-care (01) | DRG 948 ==
LOC: M ED 09:36 → M ED INP 17:10 → M MSPAV 20:32 → M MS4PR 01-26 08:55
PROVIDERS: ADMIT Hospitalist; ATTEND Hospitalist
DX: R53.1 Weakness (principal); I10 Essential (primary) hypertension; J44.9 Chronic obstructive pulmonary disease, unspecified; I95.1 Orthostatic hypotension; K21.9 Gastro-esophageal reflux disease without esophagitis; Z79.82 Long term (current) use of aspirin; Z79.899 Other long term (current) drug therapy; Z96.651 Presence of right artificial knee joint; Z90.710 Acquired absence of both cervix and uterus; Z98.42 Cataract extraction status, left eye; Z98.41 Cataract extraction status, right eye; Z87.891 Personal history of nicotine dependence

== ENCOUNTER → 2017-01-28 | Outpatient (REF) | payer MEDICARE, OTHER ==
[~2017-01-28] MED LIST changes: +GINK60CA3 PO; +SPIR1CAP INH; +TUMS500C PO; +VITMTA PO
[2017-01-28 17:17] LABS: BLOOD UREA NITROGEN 11 MG/DL (7-18); CREATININE FOR GFR 0.59 MG/DL (0.55-1.02); GLOMERULAR FILTRATION RATE > 60.0 (>39)
== END ==
LOC: M LAB REF 16:41
PROVIDERS: ATTEND Internal Medicine Pulmonary Disease
DX: R06.00 Dyspnea, unspecified (principal)